=== PATIENT | male | born 1930 | race Caucasian/White ===

== ENCOUNTER → 2016-08-21 | Outpatient (CLI) | payer BC ==
[~2016-08-21] MED LIST: ASPCH81X PO; ATOR-24 PO; CLOP1TAB15 PO; FAMO20TA9 PO; FINA5TAB PO; FLM4 PO; HYDR-5688 PO; METO25TA56 PO; MULT-190 PO; NTRSLP4 SL; PANT40TA PO; SUCR1TAB PO
[2016-08-21 11:09] LABS: MEAN CORPUSCULAR HGB CONC 32.7 g/dl (32-36)
[2016-08-21 11:13] LABS: HEMATOCRIT 39.7 % (42-52); MEAN CELL VOLUME 96.6 fL (80-100); MEAN CORPUSCULAR HEMOGLOBIN 31.6 pg (25-34); RED BLOOD COUNT 4.11 M/uL (4.7-6.1); WHITE BLOOD COUNT 4.83 K/uL (4.8-10.8)
[2016-08-21 11:20] LABS: BLOOD UREA NITROGEN 12 mg/dl (7-18); GLUCOSE 90 mg/dl (70-99)
[2016-08-21 11:21] LABS: ALT/SGPT 24 U/L (12-78); CARBON DIOXIDE 29 mmol/L (21-32); CHLORIDE 109 mmol/L (98-107); CHOLESTEROL 133 mg/dl (0-200); SODIUM 144 mmol/L (136-145); TRIGLYCERIDES 131 mg/dl (0-150); VERY LOW DENSITY LIPOPROT CALC 26 mg/dl
[2016-08-21 11:25] LABS: CALCIUM 8.7 mg/dl (8.5-10.1)
[2016-08-21 11:31] LABS: ALB/GLOB RATIO 0.7 (0.9-2); ALKALINE PHOSPHATASE 97 U/L (45-117); AST/SGOT 15 U/L (15-37); CHOLESTEROL/HDL RATIO 2.7; HDL CHOLESTEROL 50 mg/dl; LDL CHOLESTEROL CALCULATED 57 mg/dl
[2016-08-21 12:18] LABS: MEAN PLATELET VOLUME 13.1 fL (7.4-10.4); PLATELET COUNT 143 K/uL (130-400)
[2016-08-21 13:23] LABS: BASO % 0.2 %; BASO ABS # 0.01 K/uL (0-0.2); COMPLETE YES; EOS % 1.7 %; GIANT PLATELETS 1+; IG% 0.2 %; LARGE PLATELETS 2+; LYMPH % 45.3 %; LYMPH ABS # 2.19 K/uL (1.2-3.4); MONO % 6.8 %; NEUT % 45.8 %
== END | disposition home or self-care (01) ==
LOC: C.LABBC 08:28
PROVIDERS: ATTEND Internal Medicine
DX: E53.8 Deficiency of other specified B group vitamins (principal)

== ENCOUNTER → 2016-08-26 | Outpatient (CLI) | payer BC ==
[~2016-08-26] MED LIST changes: +GADAVIST IV PRN
--- NOTE | 2016-08-26 11:39 | DIAGNOSTIC IMAGING REPORT ---
MRI brain BRAIN COMBO FOR IAC CLINICAL HISTORY: H81.10 Benign paroxysmal positional [id number] vertigo. Mental status change. TECHNIQUE: Multi axial MRI acquisition COMPARISON STUDY: None FINDINGS: Diffusion-weighted images are negative for an acute ischemic event. There are findings of mild cerebral atrophy. This is age-related. Internal artery canals are symmetric. There is no evidence for abnormal postcontrast enhancement. Sella and sellar parasellar regions are unremarkable. There is moderate chronic small vessel change throughout both cerebral hemispheres considered to be age-related. IMPRESSION: Negative MRI of the brain for age. Electronically signed by: Anupam Gomez M.D. 08/26/2016 11:38 AM Dictated Date/Time: 08/26/2016 11:26 AM
== END | disposition home or self-care (01) ==
LOC: C.MRIBC 08:35
PROVIDERS: ATTEND Internal Medicine
DX: H81.10 Benign paroxysmal vertigo, unspecified ear (principal)

== ENCOUNTER → 2016-12-28 | Outpatient (CLI) | payer BC ==
[~2016-12-28] MED LIST changes: -FAMO20TA9 PO; -GADAVIST IV PRN; -HYDR-5688 PO; -MULT-190 PO; -NTRSLP4 SL
== END | disposition home or self-care (01) ==
LOC: C.LABBC 10:22
PROVIDERS: ATTEND Internal Medicine
DX: E03.9 Hypothyroidism, unspecified (principal)

== ENCOUNTER 2017-03-31 14:09 | Observation (INO) | payer BC, OTHER ==
[~2017-03-31] VITALS: Ht 170.2 cm; Wt 72.6 kg
[~2017-03-31 14:09] MED LIST changes: -ATOR-24 PO
[2017-03-31] MEDS ORDERED: ATOR-24 PO (15:15)
[2017-03-31] MEDS ORDERED: FAMOTIDINE 20MG/5ML IV PUSH IV STA (15:47)
--- NOTE | 2017-03-31 15:51 | EMERGENCY ROOM VISIT NOTE ---
History Report prepared by Kelley: Nixon Ceron Under the Supervision of: Dr. Fox Urrutia M.D. First contact with patient: 15:38 Chief Complaint: CHEST PAIN Stated Complaint: CHEST PAIN Nursing Triage Summary: Pt reports midsternal cp for a couple days. Denies sob, lightheaded or dizziness. Pain into left shoulder and back. Hx of esophagus spasms. Stents x 3. History of Present Illness The patient is a 87 year old male who presents to the Emergency Room with complaints of constant midsternal chest pain that began 3 days ago. He has a past medical history of esophageal spasms and stent placement. He believes that his current chest symptoms feel most similarly to his esophageal spasm symptoms , but wanted to get checked. He is experiencing mild intermittent shortness of breath with some dizziness that he believes to be his baseline vertigo symptom. He denies and fevers, cough, abdominal pain, nausea, vomiting, or abnormal urinary symptoms. He nots that sitting up makes his pain better while lying flat exacerbates his pain. He takes a low dose Aspirin, but no other blood thinners. Source of History: patient Onset: three days ago Position: chest (sternal) Symptom Intensity: moderate Quality: ache Timing: constant Modifying Factors (Worsening): rest (lying flat) Modifying Factors (Relieving): rest (sitting up) Associated Symptoms: + SOB, No fevers, No cough, No nausea, No vomiting, No abdominal pain, No urinary symptoms Review of Systems See HPI for pertinent positives and negatives. A total of ten systems were reviewed and were otherwise negative. Past Medical & Surgical Medical Problems: (1) chest pain rule out acs (2) Esophageal Reflux (3) History of orthopedic surgery (4) Hyperlipidemia Nec/Nos (5) Hypertension Nos (6) Hypertrophy Of Prostate (Benign) (7) Lumbago Surgical Problems: (1) History of appendectomy Family History FH: cancer FH: heart disease Social History Smoking Status: Never Smoker Alcohol Use: none Drug Use: none Marital Status: Occupation Status: retired Current/Historical Medications Scheduled Aspirin (Aspirin Chewable), 81 MG PO QAM Atorvastatin (Lipitor), 1 TAB PO DAILY Clopidogrel (Plavix), 75 MG PO QPM Famotidine (Pepcid), 20 MG PO BID Finasteride (Proscar), 5 MG PO AFTERNOON Ocuvite Preservision (Ocuvite Preservision), 1 TAB PO BID Pantoprazole (Protonix), 40 MG PO BID Tamsulosin HCl (Tamsulosin HCl), 0.4 MG PO QPM Scheduled PRN Hydrocodone/Acetaminophen 5MG/325MG ([place] 5MG/325MG), 1 TABLET PO BID PRN for Pain Allergies Coded Allergies: Ciprofloxacin (Unverified Allergy, Intermediate, RASH, 06/15/15) Celecoxib (Verified Allergy, Mild, UNKNOWN, 06/15/15) Pravastatin (Verified Allergy, Mild, UNKNOWN, 06/15/15) Quinolones (Verified Allergy, Mild, 06/15/15) Rofecoxib (Verified Allergy, Mild, UNKNOW, 05/30/15) Simvastatin (Verified Allergy, Mild, UNKNOWN, 05/30/15) Physical Exam Vital Signs Date Time Temp Pulse Resp B/P (MAP) Pulse Ox O2 Delivery O2 Flow Rate FiO2 03/31/17 17:16 97 Room Air 03/31/17 16:54 69 24 97 03/31/17 16:39 63 0 99 03/31/17 16:24 63 18 99 03/31/17 16:09 63 22 97 03/31/17 15:58 61 14 111/58 100 03/31/17 15:55 62 03/31/17 15:51 97 Room Air 03/31/17 15:48 111/58 03/31/17 14:12 36.9 93 18 106/62 97 Room Air Physical Exam GENERAL: Awake, alert, well-appearing, in no distress HENT: Normocephalic, atraumatic. Oropharynx unremarkable. EYES: Normal conjunctiva. Sclera non-icteric. NECK: Supple. No nuchal rigidity. FROM. No JVD. RESPIRATORY: Clear to auscultation. CARDIAC: Regular rate, normal rhythm. Extremities warm and well perfused. Pulses equal. ABDOMEN: Soft, non-distended. No tenderness to palpation. No rebound or guarding. No masses. RECTAL: Deferred. MUSCULOSKELETAL: Chest examination reveals mild reproducible tenderness over the sternum and left upper chest. The back is symmetrical on inspection without obvious abnormality. There is no CVA tenderness to palpation. No joint edema. LOWER EXTREMITIES: Calves are equal size bilaterally and non-tender. No edema. No discoloration. NEURO: Normal sensorium. No sensory or motor deficits noted. No Nystagmus. Normal cerebellar function with [id number] SKIN: No rash or jaundice noted. Medical Decision & Procedures ER Provider Diagnostic Interpretation: Radiology results as stated below per my review and radiologist interpretation: CHEST ONE VIEW PORTABLE CLINICAL HISTORY: Atypical chest pain COMPARISON STUDY: 05/23/2015 FINDINGS: The cardiac and mediastinal contours are normal. There is no evidence of focal pulmonary consolidation. There is no evidence of failure. No pleural effusions are visualized.[ IMPRESSION: No active disease in the chest. Electronically signed by: Ady Esparza M.D. 03/31/2017 4:16 PM Dictated Date/Time: 03/31/2017 4:16 PM Laboratory Results 03/31/17 15:50 Red Blood Count 4.33, Mean Corpuscular Volume 97.0, Mean Corpuscular Hemoglobin 32.1, Mean Corpuscular Hemoglobin Concent 33.1, Mean Platelet Volume 12.9, Neutrophils (%) (Auto) 55.1, Lymphocytes (%) (Auto) 34.9, Monocytes (%) (Auto) 8.8, Eosinophils (%) (Auto) 0.8, Basophils (%) (Auto) 0.4, Neutrophils # (Auto) 2.74, Lymphocytes # (Auto) 1.74, Monocytes # (Auto) 0.44, Eosinophils # (Auto) 0.04, Basophils # (Auto) 0.02 03/31/17 15:50 Test 03/31/17 15:50 White Blood Count 4.98 K/uL (4.8-10.8) Red Blood Count 4.33 M/uL (4.7-6.1) Hemoglobin 13.9 g/dL (14.0-18.0) Hematocrit 42.0 % (42-52) Mean Corpuscular Volume 97.0 fL (80-100) Mean Corpuscular Hemoglobin 32.1 pg (25-34) Mean Corpuscular Hemoglobin Concent 33.1 g/dl (32-36) Platelet Count 144 K/uL (130-400) Mean Platelet Volume 12.9 fL (7.4-10.4) Neutrophils (%) (Auto) 55.1 % Lymphocytes (%) (Auto) 34.9 % Monocytes (%) (Auto) 8.8 % Eosinophils (%) (Auto) 0.8 % Basophils (%) (Auto) 0.4 % Neutrophils # (Auto) 2.74 K/uL (1.4-6.5) Lymphocytes # (Auto) 1.74 K/uL (1.2-3.4) Monocytes # (Auto) 0.44 K/uL (0.11-0.59) Eosinophils # (Auto) 0.04 K/uL (0-0.5) Basophils # (Auto) 0.02 K/uL (0-0.2) RDW Standard Deviation 45.6 fL (36.4-46.3) RDW Coefficient of Variation 12.8 % (11.5-14.5) Immature Granulocyte % (Auto) 0.0 % Immature Granulocyte # (Auto) 0.00 K/uL (0.00-0.02) Prothrombin Time 10.9 SECONDS (9.0-12.0) Prothromb Time International Ratio 1.0 (0.9-1.1) Anion Gap 6.0 mmol/L (3-11) Est Creatinine Clear Calc Drug Dose 33.3 ml/min Estimated GFR () 52.2 Estimated GFR (Non- 45.0 BUN/Creatinine Ratio 11.7 (10-20) Calcium Level 9.0 mg/dl (8.5-10.1) Total Bilirubin 0.7 mg/dl (0.2-1) Direct Bilirubin 0.2 mg/dl (0-0.2) Aspartate Amino Transf (AST/SGOT) 20 U/L (15-37) Alanine Aminotransferase (ALT/SGPT) 23 U/L (12-78) Alkaline Phosphatase 89 U/L (45-117) Pro-B-Type Natriuretic Peptide 225 pg/ml (0-1800) Total Protein 8.0 gm/dl (6.4-8.2) Albumin 3.3 gm/dl (3.4-5.0) Lipase 731 U/L (73-393) Laboratory results reviewed by me Medications Administered Medications (Trade) Dose Ordered Sig/Elise Route Start Time Stop Time Status Last Admin Dose Admin Famotidine (Pepcid 20mg Iv Push) 20 mg NOW STAT IV 03/31/17 15:47 03/31/17 15:51 DC 03/31/17 15:58 20 MG ECG Indication: chest pain Rate (beats per minute): 76 Rhythm: normal sinus Findings: no acute ischemic change, other (Normal axis) Comparison ECG Date: 23 May 2015 Change: no significant change ED Course 1536: The patient was evaluated in room B8. A complete history and physical exam was performed. 1657: Upon reexamination, the patient was resting. I discussed the test results and treatment plan with him. I discussed the patient's case with Dr. Merritt of the [facility] [place] [facility]. The patient will be evaluated for further management. Medical Decision I reviewed the patient's past medical history, medications, and the nursing notes as described above. Differential diagnosis includes but is not limited to: acute coronary syndrome, congestive heart failure, pneumonia, bronchitis, gastritis, reflux, esophageal spasm, dissection, and AAA. The patient is an 87-year-old gentleman with a past medical history of CAD status post multiple stents as well as history of esophageal spasm patient's emergency department with constant chest pain since this morning per history of present illness. On arrival the patient is uncomfortable but in no acute distress, afebrile with stable vital signs. Has mild reproducible pain on palpation to the sternum and left upper chest. EKG unremarkable. Initial troponin negative. Patient did feel improvement of symptoms after IV Pepcid suggesting likely etiology due to esophageal spasm or, GERD/gastritis. Otherwise, given the patient has a heart score of 5, moderate risk, with no recent stress test it is reasonable to admit the patient for further ACS rule out. Patient reports a history of allergy to high-dose aspirin there and therefore will defer full dose aspirin at this time. Case was d/w Dr. Merritt, [facility] hospitalist who will admit the patient for further management. Medication Reconcilliation Current Medication List: was personally reviewed by me Blood Pressure Screening Patient's blood pressure: Normal blood pressure Blood pressure disposition: Did not require urgent referral Consults Time Called: 1651 Consulting Physician: Dr. Merritt - [facility] Returned Call: 1657 I discussed the patient with him - He will evaluate the patient for further treatment. Impression Primary Impression: Substernal chest pain Scribe Attestation The scribe's documentation has been prepared under my direction and personally reviewed by me in its entirety. I confirm that the note above accurately reflects all work, treatment, procedures, and medical decision making performed by me. Departure Information Dispostion Being Evaluated By Hospitalist Referrals No Doctor, Assigned (PCP) Patient Instructions My [facility]
[2017-03-31 16:10] LABS: BASO % 0.4 %; BASO ABS # 0.02 K/uL (0-0.2); COMPLETE YES; EOS % 0.8 %; LYMPH % 34.9 %; LYMPH ABS # 1.74 K/uL (1.2-3.4); MEAN CORPUSCULAR HEMOGLOBIN 32.1 pg (25-34); MEAN CORPUSCULAR HGB CONC 33.1 g/dl (32-36); MEAN PLATELET VOLUME 12.9 fL (7.4-10.4); MONO % 8.8 %; NEUT % 55.1 %; PLATELET COUNT 144 K/uL (130-400); RED BLOOD COUNT 4.33 M/uL (4.7-6.1); WHITE BLOOD COUNT 4.98 K/uL (4.8-10.8)
--- NOTE | 2017-03-31 16:18 | DIAGNOSTIC IMAGING REPORT ---
CHEST ONE VIEW PORTABLE CLINICAL HISTORY: Atypical chest pain COMPARISON STUDY: 05/23/2015 FINDINGS: The cardiac and mediastinal contours are normal. There is no evidence of focal pulmonary consolidation. There is no evidence of failure. No pleural effusions are visualized.[ IMPRESSION: No active disease in the chest. Electronically signed by: Ady Esparza M.D. 03/31/2017 4:16 PM Dictated Date/Time: 03/31/2017 4:16 PM
[2017-03-31 16:27] LABS: ALT/SGPT 23 U/L (12-78); BLOOD UREA NITROGEN 16 mg/dl (7-18); BUN/CREATININE RATIO 11.7 (10-20); CARBON DIOXIDE 29 mmol/L (21-32); CHLORIDE 105 mmol/L (98-107); CREATININE 1.38 mg/dl (0.60-1.40); GLUCOSE 97 mg/dl (70-99); POTASSIUM 4.4 mmol/L (3.5-5.1); SODIUM 140 mmol/L (136-145)
[2017-03-31 16:33] LABS: ALKALINE PHOSPHATASE 89 U/L (45-117); AST/SGOT 20 U/L (15-37)
[2017-03-31] MEDS ORDERED: CLOP1TAB15 PO (16:40)
[2017-03-31] MEDS ORDERED: FAMO20TA9 PO (16:40)
[2017-03-31] MEDS ORDERED: MULT-190 PO (17:12)
[2017-03-31] MEDS ORDERED: HYDR-5688 PO (17:12)
[2017-03-31] MEDS ORDERED: ACETAMINOPHEN 325 MG TAB PO PRN (17:15)
[2017-03-31] MEDS ORDERED: MAGNESIUM HYDROXIDE SUSP 30 ML UDC PO PRN (17:15)
[2017-03-31] MEDS ORDERED: POLYETHYLENE (MIRALAX) 17 GM PACK PO PRN (17:15)
[2017-03-31] MEDS ORDERED: HYDROCODONE/ACETAMOPHEN 5/325MG TAB PO PRN (17:15)
[2017-03-31] MEDS ORDERED: ALUMINUM/MAGNESIUM/SIMETH (MAALOX MAX) 30 ML UDC PO PRN (17:15)
[2017-03-31] MEDS ORDERED: ONDANSETRON INJ 2 MG/ML 2 ML VIAL IV PRN (17:15)
[2017-03-31] MEDS ORDERED: ZOLPIDEM TARTRATE 5 MG TAB PO PRN (17:15)
[2017-03-31] MEDS ORDERED: NITROGLYCERIN 0.4 MG SL PER TAB CHARGE SL PRN (17:15)
--- NOTE | 2017-03-31 17:37 | History and Physical ---
History & Physical Date of Service Mar 31, 2017. History & Physical chest pain rule out acs, GERD, stress test ordered, [id number]
--- NOTE | 2017-03-31 18:05 | HISTORY & PHYSICAL EXAMINATION ---
DATE OF ADMISSION: 03/31/2017 This is observation H&P, 25 minutes. CHIEF COMPLAINT: Chest pain for a couple of days. HISTORY OF PRESENT ILLNESS: The patient is an 87-year-old white male with a significant past medical history of GERD, dyslipidemia, hypertension, CAD with 3 stents, coming into the hospital Emergency Department because of the above chief complaint. 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 Reported has constant midsternal chest pain, for 3 days, comes and goes, mild intermittent chest pain associated with shortness of breath and some dizziness. denies radiation. History of esophageal spasm, but because of his heart conditions and want to be checked. In the Emergency Room, his chest pain was helped with some Pepcid. When I interviewed with him, he is awake, alert, and orientated, no chest pain now. Denied fever or chills; denied cough, sputum; denied chest wall pain. Denied nausea, vomiting, abdominal pain, diarrhea or constipation; denied dysuria, urgency, or frequencies; denied facial droop, slurry speeches or local weakness. ALLERGIES: ALLERGY TO CELECOXIB, CIPRO, PRAVASTATIN, QUINOLONE, ROFECOXIB, SIMVASTATIN. PAST MEDICAL AND SURGICAL HISTORY: Include: 1. GERD. 2. Orthopedic surgery 3. Dyslipidemia. 4. Hypertension. 5. BPH. 6. Lower back pain. 7. History of appendectomy. FAMILY HISTORY: Include cancer and heart disease. SOCIAL HISTORY: Never smoked. Denied alcohol abuse disorder, denied illicit drug abuse. The patient is and retired. MEDICATIONS: Currently taking at home include aspirin 81 mg p.o. daily, Lipitor 1 tab p.o. daily, Plavix 75 mg p.o. daily, Pepcid 20 mg p.o. b.i.d., Proscar 5 mg p.o. daily, Lopressor 12.5 mg p.o. b.i.d., Protonix 40 mg p.o. b.i.d., and tamsulosin 0.4 mg daily. REVIEW OF SYSTEMS: Please see HPI, otherwise 14-point organ system review were negative. PHYSICAL EXAMINATION: VITAL SIGNS: Temperature is 36.9, pulse 93, respiration rate 18, blood pressure 106/62, pulse ox was 97% in room air. GENERAL: The patient is white male, awake, alert and orientated, looks much younger than his age, is pleasant, conversational, and follows all commands. HEAD: Normocephalic. EYES: Pupils equal, round responds to light. EARS: Ear was normal. NOSE: Normal. NECK: Supple. Thyroid no enlargement. Trachea in the midline. HEART: Regular rhythm. S1, S2. LUNGS: Decreased breathing sounds. There was no wheezing, rhonchi or crackles. ABDOMEN: Soft, nontender. Bowel sound was positive. There was no guarding, no rebounds, no masses. GENITOURINARY AND RECTAL SYSTEM: Deferred. MUSCULOSKELETAL: Chest wall has no reproducible tenderness. Bilateral CVA was nontender. LOWER EXTREMITIES: Calf was nontender, no edema. Pulse was symmetric bilaterally. There was no clubbing, no cyanosis. NEUROLOGIC EVALUATION: Cranial nerves II-XII was intact. There were no local deficits. SKIN: Has no rashes. LABORATORY STUDIES: WBC 4, hemoglobin 13, platelets 144. BUN 16, creatinine 1.38, blood glucose 97, chloride 105, bicarbonate 29, sodium 140, potassium 4.4. IMAGING DATA: EKG normal sinus rhythm. There were no ST-T phase changes. Chest x-ray has no acute disease. ASSESSMENT: An 87-year-old white male with the conditions below: 1. Chest pain, with significant past medical history of coronary artery disease, stents, need to rule out acute coronary syndrome. Currently, cardiac enzyme troponin is negative 2. Middle chest pain with history of gastroesophageal reflux disease and esophageal spasm, possible digestive tract condition related such as gastroesophageal reflux disease, peptic ulcerative disease, etc 3. Elevated lipase with normal liver function test, maybe because of dehydration. We will follow up lipase. 4. Elevated BUN and creatinine with creatinine 1.38 compared to creatinine 1.10 in July 2016. Therefore, possibly has some mild dehydration. 5. History of dyslipidemia, hypertension, coronary artery disease, benign prostatic hypertrophy. Based on the above conditions, will observe the patient in the tele. Cardiac enzyme troponin x2 sets more. We will give clear liquid diet, n.p.o. midnight for possible tomorrow stress test. Will order a dobutamine stress test. The patient's military cook, Dr. Bartholomew may planning to have cardiology consultation, if needed. We will make sure the patient continue Pepcid and continue Protonix. For hypertension, dyslipidemia, coronary artery disease, gastroesophageal reflux disease. The home medicine will be continued. Gastrointestinal and deep vein thrombosis prophylaxis is covered. The patient is full code. MTDD
[2017-03-31 18:43] VITALS: BP 124/66; PULSE 67; TEMP 36.6; O2SAT 97; Ht 170.2 cm; Wt 72.6 kg
[2017-03-31] MEDS ORDERED: PANTOprazole INJ 40 MG in SYRINGE 0 ML IV ONE (19:15)
[2017-03-31] MEDS: SODIUM CHLORIDE 0.9% 1000ML 1,000 ML IV SCH (19:55)
[2017-03-31 20:00] VITALS: O2SAT 97
[2017-03-31 20:32] LABS: PROTHROMBIN TIME (PATIENT) 10.9 SECONDS (9.0-12.0)
[2017-03-31] MEDS: FAMOTIDINE 20 MG TAB PO SCH (20:41)
[2017-03-31] MEDS ORDERED: CLOPIDOGREL BISULFATE 75 MG TAB PO SCH (21:00)
[2017-03-31] MEDS ORDERED: ENOXAPARIN 30 MG/0.3 ML SYR SC SCH (21:00)
[2017-03-31] MEDS ORDERED: TAMSULOSIN HCL 0.4 MG CAP PO SCH (21:00)
[2017-03-31] MEDS ORDERED: IV FLUIDS COMPLETED PRN (21:15)
[2017-03-31 23:32] LABS: CKMB/CK RATIO 0.3 (0-3.0)
[2017-03-31 23:48] VITALS: BP 105/60; PULSE 66; TEMP 36.9; O2SAT 93
[2017-03-31 23:59] VITALS: O2SAT 97
[2017-04-01 04:00] VITALS: BP 101/61; PULSE 66; TEMP 36.5; O2SAT 95; O2SAT 97
[2017-04-01 07:12] VITALS: BP 111/63; PULSE 61; TEMP 36.9; O2SAT 97
[2017-04-01 08:21] LABS: BASO % 0.4 %; BASO ABS # 0.02 K/uL (0-0.2); COMPLETE YES; EOS % 1.5 %; HEMATOCRIT 40.9 % (42-52); LYMPH % 40.8 %; LYMPH ABS # 2.23 K/uL (1.2-3.4); MEAN CELL VOLUME 96.5 fL (80-100); MEAN CORPUSCULAR HEMOGLOBIN 31.4 pg (25-34); MEAN CORPUSCULAR HGB CONC 32.5 g/dl (32-36); MEAN PLATELET VOLUME 12.7 fL (7.4-10.4); MONO % 7.5 %; NEUT % 49.8 %; PLATELET COUNT 135 K/uL (130-400); RED BLOOD COUNT 4.24 M/uL (4.7-6.1); WHITE BLOOD COUNT 5.46 K/uL (4.8-10.8)
[2017-04-01 08:43] LABS: BUN/CREATININE RATIO 12.9 (10-20); CALCIUM 8.6 mg/dl (8.5-10.1); CREATININE 1.22 mg/dl (0.60-1.40); MAGNESIUM 2.3 mg/dl (1.8-2.4); POTASSIUM 3.9 mmol/L (3.5-5.1)
[2017-04-01 08:48] LABS: CHOLESTEROL/HDL RATIO 2.1; PHOSPHORUS 3.1 mg/dl (2.5-4.9)
[2017-04-01 08:49] LABS: CKMB/CK RATIO 0.4 (0-3.0)
[2017-04-01] MEDS ORDERED: ATROPINE SULFATE 0.1 MG/ML 5ML SYR ONE (08:57)
[2017-04-01] MEDS ORDERED: METOPROLOL TARTRATE 1 MG/ML VIAL ONE (08:57)
[2017-04-01] MEDS ORDERED: DOBUTamine HCL 12.5 MG/ML 20 ML VIAL ONE (08:57)
[2017-04-01] MEDS ORDERED: FINASTERIDE 5 MG TAB PO SCH (09:00)
[2017-04-01] MEDS ORDERED: ATORVASTATIN 40 MG TAB PO SCH (09:00)
[2017-04-01] MEDS ORDERED: CEROVITE ADV FORMULA TAB PO SCH (09:00)
[2017-04-01] MEDS ORDERED: PANTOprazole SOD 40 MG TAB PO SCH (09:00)
[2017-04-01] MEDS ORDERED: ASPIRIN 81 MG ECTAB PO SCH (09:00)
[2017-04-01] MEDS ORDERED: PERFLUTREN LIPID MICROSPHERE (DEFINITY) IV ONE (09:41)
[2017-04-01] MEDS: SODIUM CHLORIDE 0.9% 1000ML 1,000 ML IV SCH (10:30)
[2017-04-01] MEDS: FAMOTIDINE 20 MG TAB PO SCH (10:31)
[2017-04-01] MEDS ORDERED: PANTOprazole INJ 40 MG in SYRINGE 0 ML IV SCH (11:00)
--- NOTE | 2017-04-01 11:51 | DOBUTAMINE ECHO ---
*NOTICE TO RECEIVING CONSTITUTION PARTY AGENCY This information is strictly Confidential and protected under [place] law. [place] law prohibits you from making any further disclosure of this information unless further disclosure is expressly permitted by the written consent of the person to whom it pertains or is authorized by law. A general authorization for the release of medical or other information is not sufficient for this purpose. Hospital accepts no responsibility if the information is made available to any other person, INCLUDING THE PATIENT. Interpretation Summary * Name: WENCESLAO JUSTICE Study Date: 04/01/2017 08:24 AM BP: 117/56 mmHg * Patient Location: [facility] HR: 65 * : 1930 (M/d/yyyy) Gender: Male Height: 66 in * Age: 87 yrs Ethnicity: CA Weight: 161 lb * Ordering Physician: Melvin Merritt * Referring Physician: HUSSEIN * Performed By: Evi Urbina RDCS * * Reason For Study: CHEST PAIN * BSA: 1.8 m2 * -- Conclusions -- * Dobutamine Stress Echo: * 1. Negative Dobutamine stress echo for ischemia at 95 % MPHR. * 2. Negative Dobutamine ECG for ischemia at 95 % MPHR. * 3. Hypertensive blood pressure response. * 4. No arrhythmia. PACs. * 5. No chest pain reported. * 6. Technically difficult study, enhanced with IV Definity. * Echo: * 1. Normal left ventricular size and sytolic function. EF 55-60%. No regional wall motion abnormalities visualized. No left ventricular hypertrophy. Type 1 diastolic dysfunction. * 2. There is mild mitral regurgitation. * 3. Trace aortic regurgitation. * 4. Compared to prior study on 09/18/2013, wall motion now appears normal. Procedure Details * DOBUTAMINE ECHO, CPT#73103 * A contrast injection of Definity was performed to improve assessment of LV function. * Contrast was injected into an intravenous site in the left arm. * One vial of Definity ultrasound contrast was diluted in normal saline to a total volume of 10 ml. A total of '4' ml of solution was administered during imaging. * Lot # [id number] of Definity utilized for procedure. * Expiration date JUN 16. * The attending nurse who injected the contrast agent was OZ CASTRO RN. Left Ventricle * The left ventricle is normal in size. * There is normal left ventricular wall thickness. * Ejection Fraction = 55-60%. * Left ventricular systolic function is normal. * Resting wall motion: Normal. Stress wall motion: Appropriate increase in Left ventricular systolic function and decrease in cavity size. No stress induced segmental wall motion abnormalities. * The left ventricular ejection fraction increases normally with stress. The left ventricular end-systolic cavity size reduces post-stress (normal response). The left ventricular wall motion with stress is normal. * No regional wall motion abnormalities noted. Right Ventricle * The right ventricle is normal in size and function. * The right ventricular systolic function is normal as assessed by tricuspid annular plane systolic excursion (TAPSE) (normal >1.5 cm). Atria * The left atrial size is normal. * Right atrial size is normal. * There is no evidence of atrial septal defect, but resolution does not allow assessment for a patent foramen ovale. Mitral Valve * The mitral valve is grossly normal. * There is no mitral valve stenosis. * There is mild mitral regurgitation. Tricuspid Valve * The tricuspid valve is not well visualized, but is grossly normal. * There is no tricuspid stenosis. * There is mild tricuspid regurgitation. Aortic Valve * The aortic valve is not well visualized. * No hemodynamically significant valvular aortic stenosis. * Trace aortic regurgitation. Pulmonic Valve * The pulmonary valve is inadequately visualized, but the Doppler data is adequate for interpretation. Great Vessels * The aortic root is normal size. * Normal IVC size and inspiratory collapse. Pericardium * The pericardium appears normal. Stress Parameters * NSR at 67 bpm. * Stress ECG: No ST changes. No arrhythmias. * Rest heart rate was '65' BPM. * Rest blood pressure was '117/56' * Maximum heart rate achieved was 125 bpm. * Maximum heart rate was 95 % of maximum age-predicted heart rate. * Maximum blood pressure was '199/31' * Maximum Dobutamine infusion rate was '30' mcg/kg/min. * Dobutamine infusion was terminated due to achieving target heart rate * A total of 5 mg of IV Metoprolol was administered to reverse Dobutamine-induced tachycardia. Left Ventricular Diastolic Function * Grade I diastolic dysfunction, (abnormal relaxation pattern). MMode 2D Measurements and Calculations IVSd 1.1 cm IVSs 1.3 cm LVIDd 4.3 cm LVIDs 3.1 cm LVPWd 1.1 cm LVPWs 1.4 cm IVS/LVPW 1.0 FS 28.2 % EDV(Teich) 84.7 ml ESV(Teich) 38.3 ml EF(Teich) 54.8 % EDV(cubed) 81.5 ml ESV(cubed) 30.1 ml EF(cubed) 63.0 % % IVS thick 23.6 % % LVPW thick 32.2 % LV mass(C)d 159.6 grams LV mass(C)dI 87.5 grams/m\S\2 LV mass(C)s 142.8 grams LV mass(C)sI 78.3 grams/m\S\2 SV(Teich) 46.5 ml SI(Teich) 25.5 ml/m\S\2 SV(cubed) 51.4 ml SI(cubed) 28.2 ml/m\S\2 Ao root diam 3.2 cm Ao root area 7.8 cm\S\2 LVAd ap4 23.3 cm\S\2 LVLd ap4 6.9 cm EDV(MOD-sp4) 67.1 ml EDV(sp4-el) 67.1 ml LVAs ap4 14.1 cm\S\2 LVLs ap4 5.9 cm ESV(MOD-sp4) 30.7 ml ESV(sp4-el) 28.7 ml EF(MOD-sp4) 54.3 % EF(sp4-el) 57.3 % LVAd ap2 18.9 cm\S\2 LVLd ap2 6.8 cm EDV(MOD-sp2) 44.7 ml EDV(sp2-el) 44.8 ml LVAs ap2 10.9 cm\S\2 LVLs ap2 6.1 cm ESV(MOD-sp2) 18.8 ml ESV(sp2-el) 16.7 ml EF(MOD-sp2) 58.1 % EF(sp2-el) 62.8 % LVLd %diff -1.39 % EDV(MOD-bp) 55.3 ml LVLs %diff 2.7 % ESV(MOD-bp) 24.0 ml EF(MOD-bp) 56.6 % SV(MOD-sp4) 36.4 ml SI(MOD-sp4) 20.0 ml/m\S\2 SV(MOD-sp2) 26.0 ml SI(MOD-sp2) 14.2 ml/m\S\2 SV(MOD-bp) 31.3 ml SI(MOD-bp) 17.1 ml/m\S\2 SV(sp4-el) 38.4 ml SI(sp4-el) 21.1 ml/m\S\2 SV(sp2-el) 28.1 ml SI(sp2-el) 15.4 ml/m\S\2 Doppler Measurements and Calculations MV E max tara 76.6 cm/sec MV A max tara 87.8 cm/sec MV E/A 0.87 MV dec time 0.27 sec Ao V2 max 134.7 cm/sec Ao max PG 7.3 mmHg Ao max PG (full) 4.0 mmHg LV V1 max PG 3.3 mmHg LV V1 max 90.2 cm/sec TR max tara 240.1 cm/sec
[2017-04-01 11:52] VITALS: BP 93/53; PULSE 63; TEMP 36.6; O2SAT 98
[2017-04-01] MEDS ORDERED: NURSING VERBAL MED ORDER ONE (12:00)
[2017-04-01] MEDS ORDERED: SUCRALFATE 1 GM TAB PO ONE (12:00)
[2017-04-01] MEDS ORDERED: NTRSLP4 SL (12:03)
[2017-04-01] MEDS ORDERED: SUCR1TAB PO (12:03)
[2017-04-01] MEDS: SUCRALFATE 1 GM TAB PO SCH ×2 (12:55→14:05)
--- NOTE | 2017-04-01 13:51 | Discharge Instructions ---
Discharge Instructions Date of Service Apr 01, 2017. Admission Reason for Admission: Chest Pain Rule Out Acs Discharge Discharge Diagnosis / Problem: Chest Pain Discharge Goals Goal(s): Decrease discomfort, Improve function, Increase independence Activity Recommendations Activity Limitations: resume your previous activity . Instructions / Follow-Up Instructions / Follow-Up Chest Pain: - Your cardiac enzymes did not elevate and your stress test did not show signs of heart dysfunction or signs of bad blood flow to your heart - This pain could be a mix of musculoskeletal given your shoulder procedures and when you push on the chest it hurts more - This may also be from your heart burn and will continue the medications you were on. 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 Who to Call and When: Medical Emergencies: If at any time you feel your situation is an emergency, please call 911 immediately. . Non-Emergent Contact Non-Emergency issues call your: Primary Care Provider Call Non-Emergent contact if: you have a fever, your pain is concerning you, you have any medication questions . . "Provider Documentation" section prepared by Stephanie Metzger. . VTE Core Measure Inpt VTE Proph given/why not?: Enoxaparin (Lovenox)SQ
[2017-04-01 14:16] VITALS: BP 93/53; PULSE 63; TEMP 36.6; O2SAT 98
--- NOTE | 2017-04-01 17:31 | Discharge Summary ---
Discharge Summary Date of Service Apr 01, 2017. Discharge Summary Admission Date: Mar 31, 2017 at 17:23 Discharge Date: Apr 01, 2017 Discharge Disposition: Home Principal Diagnosis: Chest Pain - Musculoskeletal vs GERD Problems/Secondary Diagnoses: (1) Esophageal Reflux Status: Chronic Immunizations: Have You Had Influenza Vaccine: Yes Influenza Vaccine Date: Jan 26, 2013 History of Tetanus Vaccine?: No History of Pneumococcal: No History of Hepatitis B Vaccine: No Procedures: CHEST ONE VIEW PORTABLE FINDINGS: The cardiac and mediastinal contours are normal. There is no evidence of focal pulmonary consolidation. There is no evidence of failure. No pleural effusions are visualized.[ IMPRESSION: No active disease in the chest. Medication Reconciliation New Medications: Nitroglycerin (Nitrostat) 0.4 Mg/1 Tab Subl 0.4 MG SL UD PRN for Chest Pain for 14 Days Take for chest pain and may repeat every 5 minutes x 3 times. Call 911 if chest pain does not resolve Sucralfate (Sucralfate) 1 Gm Tab 1 GM PO QID for 30 Days, #120 TAB Continued Medications: Aspirin (Aspirin Chewable) 81 Mg Chew 81 MG PO QAM Atorvastatin (Lipitor) 40 Mg Tab 1 TAB PO DAILY for 30 Days, #30 TAB 5 Refills Clopidogrel (Plavix) 75 Mg Tab 75 MG PO QPM, TAB Famotidine (Pepcid) 20 Mg Tab 20 MG PO BID Finasteride (Proscar) 5 Mg Tab 5 MG PO AFTERNOON, TAB Hydrocodone/Acetaminophen 5MG/325MG ([place] 5MG/325MG) Tab 1 TABLET PO BID PRN for Pain, TAB PRN PAIN Ocuvite Preservision (Ocuvite Preservision) 1 Tab Tab 1 TAB PO BID, TAB Pantoprazole (Protonix) 40 Mg Tab 40 MG PO BID, #30 TAB Tamsulosin HCl (Tamsulosin HCl) 0.4 Mg Cap 0.4 MG PO QPM, #90 Discharge Exam Review of Systems: Constitutional: No fever, No chills ENT: No nasal symptoms, No sore throat Respiratory: No cough, No shortness of breath Cardiovascular: + chest pain (L sided - reproducible), No palpitations Abdomen: No pain, No nausea, No vomiting, No diarrhea, No constipation, No GI bleeding Musculoskeletal: No swelling, No calf pain Genitourinary - Male: No dysuria Neurologic: No balance problems Hematologic / Lymphatic: No abnormal bleeding/bruising, No clotting problems Integumentary: No rash Physical Exam: General Appearance: WD/WN, no apparent distress Eyes: sclerae normal ENT: hearing grossly normal Neck: supple, no JVD, trachea midline Respiratory/Chest: lungs clear, normal breath sounds, no respiratory distress, no accessory muscle use, + pertinent finding (tenderness to palpation inferior to L nipple) Cardiovascular: regular rate, rhythm, no gallop, + systolic murmur Abdomen / GI: normal bowel sounds, non tender, soft Extremities: no calf tenderness, no pedal edema Neurologic/Psychiatric: alert, oriented x 3 Skin: normal color, warm/dry Hospital Course ADMISSION: The patient is an 87-year-old white male with a significant past medical history of GERD, dyslipidemia, hypertension, CAD with 3 stents, coming into the hospital Emergency Department because of the above chief complaint. The patient reported has history of CAD stent, follow up with Dr. Bartholomew, his technicians and trades workers. Reported has constant midsternal chest pain, for 3 days, comes and goes, mild intermittent chest pain associated with shortness of breath and some dizziness. denies radiation. History of esophageal spasm, but because of his heart conditions and want to be checked. In the Emergency Room, his chest pain was helped with some Pepcid. When I interviewed with him, he is awake, alert, and orientated, no chest pain now. Denied fever or chills; denied cough, sputum; denied chest wall pain. Denied nausea, vomiting, abdominal pain, diarrhea or constipation; denied dysuria, urgency, or frequencies; denied facial droop, slurry speeches or local weakness. HOSPITAL COURSE: Mr. Banda was admitted for chest pain that appears to be more GERD vs Musculoskeletal related. Cardiac enzymes have remained negative and Dobutamine stress test was negative for ischemic findings. Pain is in L chest and reproducible to palpation. He states this pain occ. radiates into shoulder and shoulder blade. No history of shingles and no rash currently present. He states pain did improve slightly with acid reducers. He was previously on Carafate and states this helped. Will provide and Rx for Carafate to use. Will also give NTG PRN for chest pain. Recommend to follow-up with his technicians and trades workers Dr. Bartholomew and PCP. Total Time Spent: Greater than 30 minutes This includes examination of the patient, discharge planning, medication reconciliation, and communication with other providers. Discharge Instructions Please refer to the electronic Patient Visit Report (Discharge Instructions) for additional information. Additional Copies To Tim Guadarrama M.D.
== END 2017-04-01 15:15 | disposition home or self-care (01) ==
LOC: C.EDB 14:10 → C.2T 17:23 → ENRESERV 17:26
PROVIDERS: ADMIT Hospitalist; ATTEND Hospitalist
DX: R07.2 Precordial pain (principal); K21.9 Gastro-esophageal reflux disease without esophagitis; E78.5 Hyperlipidemia, unspecified; I10 Essential (primary) hypertension; N40.0 Benign prostatic hyperplasia without lower urinary tract symptoms; Z90.89 Acquired absence of other organs; Z82.49 Family history of ischemic heart disease and other diseases of the circulatory system; Z79.82 Long term (current) use of aspirin; I25.10 Atherosclerotic heart disease of native coronary artery without angina pectoris; Z95.818 Presence of other cardiac implants and grafts; Z79.02 Long term (current) use of antithrombotics/antiplatelets

== ENCOUNTER 2017-07-29 20:28 | Emergency (ER) | payer BC ==
[~2017-07-29] VITALS: Ht 167.6 cm; Wt 76.4 kg
[~2017-07-29 20:28] MED LIST changes: +ATOR-24 PO; +FAMO20TA9 PO; +HYDR-5688 PO; -METO25TA56 PO; +MULT-190 PO; +NTRSLP4 SL
[2017-07-29 20:31] VITALS: TEMP 36.6; Ht 167.6 cm; Wt 76.4 kg
[2017-07-29] MEDS ORDERED: TRAMADOL HCL 50 MG TAB PO STA (20:52)
[2017-07-29] MEDS ORDERED: ACETAMINOPHEN 325 MG TAB PO STA (20:52)
--- NOTE | 2017-07-29 20:55 | EMERGENCY ROOM VISIT NOTE ---
History Report prepared by Kelley: Ponce [place] Under the Supervision of: Dr. Declan Simon M.D. First contact with patient: 20:37 Chief Complaint: HEAD INJURY (MINOR) Stated Complaint: FELL OFF LADDER, POSSIBLY HEAD INJURY History of Present Illness The patient is an 87 year old white male who is on Aspirin and Plavix with a past medical history of STEMI, heart artery stent, esophageal reflux who presents to the ED with a cc of a sudden head injury occurring prior to arrival this evening. Positive right-sided rib pain. Negative headache, pain with breathing, shaking. Per the patient's , the patient was on the second rung of a ladder trying to reach for a birds nest, and must have lost his balance and fell off the ladder, and off over a wall that was about 3 feet tall onto his back. The patient was noted to be answering questions appropriately after the fall. The patient notes that he does not remember the accident. 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 Negative pain with breathing. Negative shaking. Review of Systems See HPI for pertinent positives and negatives. A total of ten systems were reviewed and were otherwise negative. Past Medical & Surgical Medical Problems: (1) chest pain rule out acs (2) Esophageal Reflux (3) History of orthopedic surgery (4) Hyperlipidemia Nec/Nos (5) Hypertension Nos (6) Hypertrophy Of Prostate (Benign) (7) Lumbago Surgical Problems: (1) History of appendectomy Family History FH: cancer FH: heart disease Social History Smoking Status: Never Smoker Alcohol Use: none Drug Use: none Marital Status: Occupation Status: retired Current/Historical Medications Scheduled Aspirin (Aspirin Ec), 81 MG PO DAILY Atorvastatin (Lipitor), 40 MG PO DAILY Clopidogrel Bisulfate (Clopidogrel), 75 MG PO DAILY Famotidine (Pepcid), 20 MG PO BID Finasteride (Finasteride), 5 MG PO DAILY Ocuvite Preservision (Ocuvite Preservision), 1 TAB PO BID Pantoprazole (Pantoprazole Sodium), 40 MG PO BID Tamsulosin HCl (Tamsulosin HCl), 0.4 MG PO QPM Scheduled PRN Hydrocodone/Acetaminophen 5MG/325MG ([place] 5MG/325MG), 1 TABLET PO BID PRN for Moderate Pain Nitroglycerin (Nitrostat), 0.4 MG UT UD PRN for Chest Pain Allergies Coded Allergies: Ciprofloxacin (Unverified Allergy, Intermediate, RASH, 06/15/15) Celecoxib (Verified Allergy, Mild, UNKNOWN, 06/15/15) Pravastatin (Verified Allergy, Mild, UNKNOWN, 06/15/15) Quinolones (Verified Allergy, Mild, 06/15/15) Rofecoxib (Verified Allergy, Mild, UNKNOW, 05/30/15) Simvastatin (Verified Allergy, Mild, UNKNOWN, 05/30/15) Physical Exam Vital Signs Date Time Temp Pulse Resp B/P (MAP) Pulse Ox O2 Delivery O2 Flow Rate FiO2 07/29/17 21:50 73 23 124/58 96 Room Air 07/29/17 20:31 36.6 82 18 130/69 95 Room Air Physical Exam GENERAL: Awake, alert, well-appearing, NAD, wearing glasses. HENT: Normocephalic, atraumatic. No facial TTP. No ecchymosis. EYES: Normal conjunctiva. Sclera non-icteric. No anisocoria. NECK: Supple. No nuchal rigidity. FROM. No midline c-spine TTP. RESPIRATORY: CTAB, no rhonchi, wheezing, crackles CARDIAC: RRR, no MRG ABDOMEN: Soft, NTND, BS+ MSK: Mild right mid-axillary TTP without ecchymosis or stepoff. No anterior chest wall pain. No back pain. No bilateral upper or lower extremity pain. No LE edema NEURO: AxO x3. GCS 15, CN 2-12 intact, moves all 4s on command SKIN: No rash or jaundice noted. Medical Decision & Procedures ER Provider Diagnostic Interpretation: CT: Radiology results as stated below per my review and radiologist interpretation HEAD CT NONCONTRAST CT DOSE: HISTORY: s/p fall off 2nd rung ladder then off stoop, amnestic to event TECHNIQUE: Multiaxial CT images of the head were performed without the use of intravenous contrast. Automated exposure control was utilized for this study. A dose lowering technique was utilized adhering to the principles of ALARA. Comparison: Brain MRI 08/26/2016. Findings: The paranasal sinuses and mastoid air cells are clear. The calvarium and skull base are intact. There is no mass, hematoma, midline shift, acute infarct. White matter hypodensity is nonspecific but suggestive of microvascular ischemic change. The ventricles and sulci demonstrate mild age-related involutional changes. Prominence of the extra-axial space within the left posterior fossa. This favors the possibility of an arachnoid cyst. This measures 4.3 x 1.6 cm. Impression: No acute intracranial abnormality. Electronically signed by: Noah De La O M.D. 07/29/2017 9:51 PM Dictated Date/Time: 07/29/2017 9:47 PM (CHEST) THORAX WITHOUT CT DOSE: 1372.26 mGy.cm HISTORY: s/p fall off 2nd rung ladder then off stoop, R sided lateral rib TECHNIQUE: Multiaxial CT images of the chest were performed without contrast. A dose lowering technique was utilized adhering to the principles of ALARA. COMPARISON: Chest CT 10/12/2009. FINDINGS: Right fifth through seventh nondisplaced rib fractures. No pneumothorax. Mild emphysema. The central airways are patent. A 7 mm nodule within the base of the left lower lobe on image 243. A 4 mm groundglass nodule within the left upper lobe on image 116. Bibasilar linear densities likely represent subsegmental atelectasis. A few small gallstones. Partially visualized cyst within the upper pole the right kidney. The visualized liver and spleen are unremarkable. No mediastinal or hilar lymphadenopathy. Normal caliber thoracic aorta. No pleural effusions. IMPRESSION: 1. Nondisplaced right fifth through seventh rib fractures. No pneumothorax. 2. Cholelithiasis. 3. There are 2 subcentimeter pulmonary nodules as described above with the largest in the left lower lobe measuring 7 mm. Please refer to the chart below for recommended follow-up. Please refer to below summary of Fleischner criteria recommendations for follow-up of incidental CT nodules (Alan Hilton, Guidelines for management of small pulmonary nodules detected on CT scans: A statement from the Fleischner Society, Radiology 237: [phone].) SOLID NODULES Solitary nodule size: <6 mm * Low risk patients: no follow-up needed * high risk patients: optional CT at 12 months Solitary nodule size: 6-8 mm * Low risk patients: follow-up at 6-12 months, then consider further follow-up at 18-24 months * high risk patients: initial follow-up CT at 6-12 months and then at 18-24 months if no change Solitary nodule size: >8 mm * either low or high risk patients - consider follow-up CT at 3 months, and/or CT-PET, and/or biopsy Multiple nodules size: <6 mm * Low risk patients: no routine follow-up * high risk patients: optional CT at 12 months Multiple nodules size: 6-8 mm * Low risk patients: follow-up at 3-6 months, then consider further follow-up at 18-24 months * high risk patients: follow-up at 3-6 months, then at 18-24 months if no change Multiple nodules size: >8 mm * Low risk patients: follow-up at 3-6 months, then consider further follow-up at 18-24 months * high risk patients: follow-up at 3-6 months, then at 18-24 months if no change Note: newly detected indeterminate nodule in persons 35 years of age or older. * Low risk patients: minimal or absent history of smoking and/or other known risk factors * high risk patients: history of smoking or of other known risk factors (e.g. first degree relative with lung cancer, or exposure to asbestos, radon, uranium) * if a nodule up to 8 mm is partly solid or is ground glass further follow-up is required after 24 months to exclude possible slow growing adenocarcinoma (HARSHA) SUBSOLID NODULES Solitary pure ground-glass nodule * nodule size <6 mm - no CT follow-up required * nodule size >=6 mm - follow-up CT at 6-12 months, then every 2 years until 5 years Solitary part-solid nodule * nodule size <6 mm - no CT follow-up required * nodule size >=6 mm - follow-up CT at 3-6 months. If unchanged, and solid component remains <6 mm, then annual follow-up for 5 years Multiple subsolid nodules * nodule size <6 mm - follow-up CT at 3-6 months, consider further follow-up at 2 and 4 years if stable * nodule size >=6 mm - follow-up CT at 3-6 months, subsequent management based on the most suspicious nodule(s) Electronically signed by: Noah De La O M.D. 07/29/2017 10:01 PM Dictated Date/Time: 07/29/2017 9:[address] DOSE: HISTORY: s/p fall off 2nd rung ladder then off stoop TECHNIQUE: Multiaxial CT images of the cervical spine were performed and reformatted in the sagittal and coronal plane without the use of contrast. A dose lowering technique was utilized adhering to the principles of ALARA. COMPARISON: None. FINDINGS: No fractures. No subluxation. Prevertebral soft tissues and the C1-C2 interval are intact. No pneumothorax. The C2-C3 and C5-C6 vertebral bodies are fused. Straightening of the cervical spine. IMPRESSION: No fractures within the cervical spine. Electronically signed by: Noah De La O M.D. 07/29/2017 9:54 PM Dictated Date/Time: 07/29/2017 9:51 PM Medications Administered Medications (Trade) Dose Ordered Sig/Elise Route Start Time Stop Time Status Last Admin Dose Admin Tramadol HCl (Ultram Tab) 25 mg NOW STAT PO 07/29/17 20:52 07/29/17 20:58 DC 07/29/17 21:10 25 MG Acetaminophen (Tylenol Tab) 650 mg NOW STAT PO 07/29/17 20:52 07/29/17 20:58 DC 07/29/17 21:10 650 MG ED Course 2042: The patient was evaluated in room C8. A complete history and physical exam was performed. 0: I reevaluated the patient and he will get an incentive spirometer and will then go home. Discussed results and discharge instructions: he verbalized understanding and agreement. The patient is ready for discharge. Medical Decision Nursing notes reviewed. Ancillary studies and prior records reviewed. The patient is an 87 year old white male who is on Aspirin and Plavix with a past medical history of STEMI, heart artery stent, esophageal reflux who presents to the ED with a cc of a sudden head injury occurring prior to arrival this evening. Positive right-sided rib pain. Negative abdominal pain, headache, pain with breathing, shaking. Differential diagnosis: Etiologies such as fracture, dislocation, intra-abdominal, pneumothorax, intrathoracic , intracranial, neurologic, as well as other traumatic pathologies were entertained. Patient was seen and evaluated the bedside. After discussion with the patient the patient is somewhat amnestic to the event. Was up on a ladder and had fallen from the second run on the stoop and then off of a short 2-3 foot wall onto his right side. Patient does take aspirin Plavix. The patient does not remember getting up from the fall or the encounter his immediately thereafter. The states that the patient was conscious and alert and was responsive to questions. No LOC no seizure-like activity. Patient denies any headache, chest pain, shortness of breath, nausea, vomiting, abdominal pain, extremity pain, numbness, weakness, or tingling. Patient did have CTs of the head the neck in the chest. The patient was given Tylenol and tramadol. 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 Patient was informed of this finding. Patient CT the neck was negative. Patient CT the chest did show right-sided 5 through 7 non- displaced rib fractures. The patient did have a good incentive spirometry at bedside. The patient was not splinting and the patient was not tachypneic, tachycardic, nor hypoxic. The patient does have hydrocodone at home for chronic back pain. Given that he already has a prescription for this he was not given any additional pain medication. Patient was told he may continue to take Tylenol in addition to hydrocodone. Patient was told to continue do his breathing exercises with the incentive spirometer approximately 10 breaths up to 6 times per day. Patient was deemed suitable for outpatient follow-up and treatment at this time. Patient was given strict follow-up, discharge, and return precautions. All questions were answered. Patient was deemed suitable for outpatient follow-up at this time. Patient agreed with the plan of care and was safely discharged home. Medication Reconcilliation Current Medication List: was personally reviewed by me Blood Pressure Screening Patient's blood pressure: Normal blood pressure Impression Primary Impression: Ribs, multiple fractures Additional Impressions: Fall Arachnoid cyst Scribe Attestation The scribe's documentation has been prepared under my direction and personally reviewed by me in its entirety. I confirm that the note above accurately reflects all work, treatment, procedures, and medical decision making performed by me. Departure Information Dispostion Home / Self-Care Referrals Tim Guadarrama M.D. (PCP) Patient Instructions ED Fx Rib, Incentive Spirometer Zack, [facility] Additional Instructions Please return to the emergency department if you have worsening or recurrent symptoms not amenable to at-home treatment. Please call for a follow-up appointment with her primary care physician. Please take your medications as prescribed. If you have other concerns and/or complaints please feel free to also call your primary care physician's office or return the ED for further evaluation, management, and treatment. You may take tylenol 650 mg every 6 hours as needed for pain. You may take your prescription pain medicine if you do have continued pain. These use it with caution as it may cause sedation or sleepiness and even breathing problems. Please use your incentive spirometer approximately 6 times per day with 10 big deep breaths. Please return if you have any worsening numbness, tingling, weakness, and/or speech difficulty. Take your medications as prescribed. You have been examined and treated today on an emergency basis only. This is not a substitute for, or an effort to provide, complete comprehensive medical care. It is impossible to recognize and treat all injuries or illnesses in a single emergency department visit. It is therefore important that you follow up closely with [facility], your PCP, and/or your specialist(s). Call as soon as possible for an appointment. Thank you for your time and consideration. I look forward to speaking with you again soon. Please don't hesitate to call us if you have any questions. Problem Qualifiers Primary Impression: Ribs, multiple fractures Encounter type: initial encounter Fracture type: closed Laterality: right Qualified Codes: S22.41XA - Multiple fractures of ribs, right side, initial encounter for closed fracture Additional Impressions: Fall Encounter type: initial encounter Qualified Codes: W19.XXXA - Unspecified fall, initial encounter
[2017-07-29] MEDS ORDERED: PANT40TA2 PO (21:33)
[2017-07-29] MEDS ORDERED: NTRGSL/4 UT (21:33)
[2017-07-29] MEDS ORDERED: LPT40 PO (21:33)
[2017-07-29] MEDS ORDERED: PLV75 PO (21:33)
[2017-07-29] MEDS ORDERED: PRS5 PO (21:33)
[2017-07-29] MEDS ORDERED: ASPI81TA28 PO (21:34)
--- NOTE | 2017-07-29 21:52 | DIAGNOSTIC IMAGING REPORT ---
HEAD CT NONCONTRAST CT DOSE: HISTORY: s/p fall off 2nd rung ladder then off stoop, amnestic to event TECHNIQUE: Multiaxial CT images of the head were performed without the use of intravenous contrast. Automated exposure control was utilized for this study. A dose lowering technique was utilized adhering to the principles of ALARA. Comparison: Brain MRI 08/26/2016. Findings: The paranasal sinuses and mastoid air cells are clear. The calvarium and skull base are intact. There is no mass, hematoma, midline shift, acute infarct. White matter hypodensity is nonspecific but suggestive of microvascular ischemic change. The ventricles and sulci demonstrate mild age-related involutional changes. Prominence of the extra-axial space within the left posterior fossa. This favors the possibility of an arachnoid cyst. This measures 4.3 x 1.6 cm. Impression: No acute intracranial abnormality. Electronically signed by: Noah De La O M.D. 07/29/2017 9:51 PM Dictated Date/Time: 07/29/2017 9:47 PM
--- NOTE | 2017-07-29 21:55 | DIAGNOSTIC IMAGING REPORT ---
CERVICAL SPINE CT CT DOSE: HISTORY: s/p fall off 2nd rung ladder then off stoop TECHNIQUE: Multiaxial CT images of the cervical spine were performed and reformatted in the sagittal and coronal plane without the use of contrast. A dose lowering technique was utilized adhering to the principles of ALARA. COMPARISON: None. FINDINGS: No fractures. No subluxation. Prevertebral soft tissues and the C1-C2 interval are intact. No pneumothorax. The C2-C3 and C5-C6 vertebral bodies are fused. Straightening of the cervical spine. IMPRESSION: No fractures within the cervical spine. Electronically signed by: Noah De La O M.D. 07/29/2017 9:54 PM Dictated Date/Time: 07/29/2017 9:51 PM
--- NOTE | 2017-07-29 22:02 | DIAGNOSTIC IMAGING REPORT ---
(CHEST) THORAX WITHOUT CT DOSE: 1372.26 mGy.cm HISTORY: s/p fall off 2nd rung ladder then off stoop, R sided lateral rib TECHNIQUE: Multiaxial CT images of the chest were performed without contrast. A dose lowering technique was utilized adhering to the principles of ALARA. COMPARISON: Chest CT 10/12/2009. FINDINGS: Right fifth through seventh nondisplaced rib fractures. No pneumothorax. Mild emphysema. The central airways are patent. A 7 mm nodule within the base of the left lower lobe on image 243. A 4 mm groundglass nodule within the left upper lobe on image 116. Bibasilar linear densities likely represent subsegmental atelectasis. A few small gallstones. Partially visualized cyst within the upper pole the right kidney. The visualized liver and spleen are unremarkable. No mediastinal or hilar lymphadenopathy. Normal caliber thoracic aorta. No pleural effusions. IMPRESSION: 1. Nondisplaced right fifth through seventh rib fractures. No pneumothorax. 2. Cholelithiasis. 3. There are 2 subcentimeter pulmonary nodules as described above with the largest in the left lower lobe measuring 7 mm. Please refer to the chart below for recommended follow-up. Please refer to below summary of Fleischner criteria recommendations for follow-up of incidental CT nodules (Alan Hilton, Guidelines for management of small pulmonary nodules detected on CT scans: A statement from the Fleischner Society, Radiology 237: [phone].) SOLID NODULES Solitary nodule size: <6 mm * Low risk patients: no follow-up needed * high risk patients: optional CT at 12 months Solitary nodule size: 6-8 mm * Low risk patients: follow-up at 6-12 months, then consider further follow-up at 18-24 months * high risk patients: initial follow-up CT at 6-12 months and then at 18-24 months if no change Solitary nodule size: >8 mm * either low or high risk patients - consider follow-up CT at 3 months, and/or CT-PET, and/or biopsy Multiple nodules size: <6 mm * Low risk patients: no routine follow-up * high risk patients: optional CT at 12 months Multiple nodules size: 6-8 mm * Low risk patients: follow-up at 3-6 months, then consider further follow-up at 18-24 months * high risk patients: follow-up at 3-6 months, then at 18-24 months if no change Multiple nodules size: >8 mm * Low risk patients: follow-up at 3-6 months, then consider further follow-up at 18-24 months * high risk patients: follow-up at 3-6 months, then at 18-24 months if no change Note: newly detected indeterminate nodule in persons 35 years of age or older. * Low risk patients: minimal or absent history of smoking and/or other known risk factors * high risk patients: history of smoking or of other known risk factors (e.g. first degree relative with lung cancer, or exposure to asbestos, radon, uranium) * if a nodule up to 8 mm is partly solid or is ground glass further follow-up is required after 24 months to exclude possible slow growing adenocarcinoma (HARSHA) SUBSOLID NODULES Solitary pure ground-glass nodule * nodule size <6 mm - no CT follow-up required * nodule size >=6 mm - follow-up CT at 6-12 months, then every 2 years until 5 years Solitary part-solid nodule * nodule size <6 mm - no CT follow-up required * nodule size >=6 mm - follow-up CT at 3-6 months. If unchanged, and solid component remains <6 mm, then annual follow-up for 5 years Multiple subsolid nodules * nodule size <6 mm - follow-up CT at 3-6 months, consider further follow-up at 2 and 4 years if stable * nodule size >=6 mm - follow-up CT at 3-6 months, subsequent management based on the most suspicious nodule(s) Electronically signed by: Noah De La O M.D. 07/29/2017 10:01 PM Dictated Date/Time: 07/29/2017 9:54 PM
[2017-07-29 22:41] VITALS: BP 122/68; PULSE 83; O2SAT 98
== END 2017-07-29 22:45 | disposition home or self-care (01) ==
LOC: C.EDB 20:29 → C.EDC 22:45
DX: S22.41XA Multiple fractures of ribs, right side, initial encounter for closed fracture (principal); M79.621 Pain in right upper arm; W11.XXXA Fall on and from ladder, initial encounter; Y93.89 Activity, other specified; G93.0 Cerebral cysts; K21.9 Gastro-esophageal reflux disease without esophagitis; E78.5 Hyperlipidemia, unspecified; I10 Essential (primary) hypertension; N40.0 Benign prostatic hyperplasia without lower urinary tract symptoms; G89.29 Other chronic pain; M54.9 Dorsalgia, unspecified; I25.2 Old myocardial infarction; Z79.82 Long term (current) use of aspirin; Z79.02 Long term (current) use of antithrombotics/antiplatelets; Z95.818 Presence of other cardiac implants and grafts; Z88.1 Allergy status to other antibiotic agents; Z88.6 Allergy status to analgesic agent; Z88.8 Allergy status to other drugs, medicaments and biological substances